=== PATIENT | male | born 1975 | race Caucasian/White ===

== ENCOUNTER → 2023-02-03 | Outpatient (CLI) | payer OTHER ==
--- NOTE | 2023-02-04 10:25 | MR ---
EXAMINATION TYPE: MR cervical spine wo con DATE OF EXAM: 02/03/2023 INDICATION: Patient age:Male; 47 years old; Reason for study: M47.812 SPONDYLOSIS W/O MYELOPATHY. Neck pain, right arm numbness, injury. COMPARISON: None. TECHNIQUE: Multi planar, multi sequence imaging was performed utilizing: T1-weighted, T2-weighted, an d turbo inversion recovery imaging of the cervical spine. IV Contrast: None. FINDINGS: Alignment: The cervical vertebral bodies have preserved heights. Alignment is within normal limits gi janie patient positioning. Bones: Multilevel disc degeneration changes throughout the spine with fixation hardware at C5-C6 and C7. No abnormal bony edema on inversion recovery sequences. Cord: The spinal cord is unremarkable with regards to their signal intensity and morphology. Discs: Postsurgical changes at C5-C6 and C6-C7. There is mild disc desiccation scattered throughout the visualized spine. C2-C3: No significant disc pathology. The spinal canal is patent. No neural foraminal stenosis. C3-C4: No significant disc pathology. The spinal canal is patent. Bilateral facet and uncovertebral joint arthropathy are present with mild bilateral neural foraminal stenosis. C4-C5: A disc osteophyte complex is present with mild spinal canal stenosis. Bilateral facet and unc overtebral joint arthropathy are present with severe right and mild left neural foraminal stenosis. C5-C6: No significant disc pathology. The spinal canal is patent. Bilateral facet and uncovertebral joint arthropathy are present with mild to moderate bilateral neural foraminal stenosis. C6-C7: No significant disc pathology. The spinal canal is patent. Bilateral facet and uncovertebral joint arthropathy are present with mild bilateral neural foraminal stenosis. C7-T1: No significant disc pathology. The spinal canal is patent. Bilateral facet and uncovertebral joint arthropathy are present with mild bilateral neural foraminal stenosis. Other: High T2 signal 15 x 9 mm lesion in the low posterior back midline near midline suggestive of s ebaceous cyst. IMPRESSION: 1. Severe right C4-C5 neural foraminal stenosis. 2. No evidence for significant spinal canal stenosis. 3. Postsurgical changes of the spine with fixation hardware.
== END | disposition home or self-care (01) ==
LOC: RADMRIMAIN 11:11
PROVIDERS: ATTEND Orthopaedic Surgery Orthopaedic Surgery of the Spine
DX: M47.812 Spondylosis without myelopathy or radiculopathy, cervical region (principal); M99.71 Connective tissue and disc stenosis of intervertebral foramina of cervical region
CPT/HCPCS: 72141

== ENCOUNTER 2023-02-19 12:28 | Emergency (ER) | payer OTHER ==
--- NOTE | 2023-02-19 12:59 | ED ---
General Adult HPI - General Chief complaint: Extremity Injury, Lower Stated complaint: [facility] right knee injury Time Seen by Provider: 02/19/23 12:34 Source: patient, RN notes reviewed, old records reviewed Mode of arrival: ambulatory Limitations: no limitations - History of Present Illness Initial comments: Patient is a 47-year-old male presents emergency Department when the right knee pain. Patient was at work when he attempted to ambulate over a log and planted his right leg on the ground to swing his left leg over the log. States his right knee gave out on him. States it feels somewhat unstable since then. Is able to ambulate but does not feel as strong. Denies any sensory deficits. Endorses pain in the knee with flexion. Denies any other injuries. Denies hitting his head, loss of consciousness, being on blood thinners. Denies any hip pain, back pain, abdominal pain, chest pain. No other acute complaints at this time. Presents for further evaluation at this time. - Related Data Home Medications Medication Instructions Recorded Confirmed Esomeprazole Magnesium [NexIUM] 20 mg PO DAILY 02/19/23 02/19/23 Allergies Allergy/AdvReac Type Severity Reaction Status Date / Time morphine Allergy Anaphylaxis Verified 02/19/23 12:36 Penicillins Allergy Anaphylaxis Verified 02/19/23 12:36 Review of Systems ROS Statement: Those systems with pertinent positive or pertinent negative responses have been documented in the HPI. Review of Systems: CONST: Denies fever EYES: Denies blurry vision ENT: Denies nasal congestion C/V: Denies Chest pain RESP: Denies shortness of breath GI: Denies abdominal pain : Denies dysuria SKIN: Denies rash. MSK: Endorses right knee pain NEURO: Denies headache ROS Other: All systems not noted in ROS Statement are negative. Past Medical History Past Medical History: Hypertension History of Any Multi-Drug Resistant Organisms: None Reported Additional Past Surgical History / Comment(s): neck surgery Past Psychological History: No Psychological Hx Reported Smoking Status: Never smoker Past Alcohol Use History: Occasional Past Drug Use History: None Reported General Exam - General Exam Comments Initial Comments: General: Appears in mild distress secondary to right knee pain HEAD: Normal with no signs of head trauma. EYES: EOMI. ENT: Hearing grossly intact. RESPIRATORY: No respiratory distress. C/V: Regular rate and rhythm. ABD: Abdomen is nondistended. EXT: No obvious deformity. Decreased flexion of the right knee secondary to pain. No obvious deformity of the knee. Anterior drawer test negative. No laxity appreciated. No tib-fib tenderness to palpation. Bilateral joint line tenderness to palpation of the right knee. Able to hold the knee in full extension. Patient also has some mild medial malleolar tenderness and anterior ankle tenderness to palpation with normal range of motion. No obvious sensory deficits appreciated. Neurovascularly intact throughout. SKIN: No rashes or lesions observed on exposed skin. NEURO: Alert and oriented. Limitations: no limitations Course Vital Signs 02/19/23 02/19/23 02/19/23 12:31 14:01 14:03 Temperature 98.6 F 98.2 F Pulse Rate 86 82 82 Respiratory 20 14 Rate Blood Pressure 161/115 168/106 172/108 O2 Sat by Pulse 97 97 Oximetry Medical Decision Making - Medical Decision Making Was pt. sent in by a medical professional or institution (, PA, EXPANSION JOINT BUILDER, urgent care, hospital, or senior living...) When possible be specific @ -No Did you speak to anyone other than the patient for history (EMS, parent, family, police, friend...)? What history was obtained from this source @ -No Did you review nursing and triage notes (agree or disagree)? Why? @ -I reviewed and agree with nursing and triage notes Were old charts reviewed (outside hosp., previous admission, EMS record, old EKG, old radiological studies, urgent care reports/EKG's, senior living records)? Report findings @ -No old charts were reviewed Differential Diagnosis (chest pain, altered mental status, abdominal pain women, abdominal pain men, vaginal bleeding, weakness, fever, dyspnea, syncope, headache, dizziness, GI bleed, back pain, seizure, CVA, palpatations, mental health, musculoskeletal)? @ -Knee strain, knee sprain, knee fracture, knee dislocation, ankle injury, strain, ankle sprain, ankle fracture. This list is not all-inclusive EKG interpreted by me (3pts min.). @ -None done X-rays interpreted by me (1pt min.). @ -Knee x-ray, ankle x-ray unremarkable for any obvious traumatic injury. There is some edema around the ankle suggestive of swelling. CT interpreted by me (1pt min.). @ -None done U/S interpreted by me (1pt. min.). @ -None done What testing was considered but not performed or refused? (CT, X-rays, U/S, labs)? Why? @ -None What meds were considered but not given or refused? Why? @ -I did offer the patient Tylenol or Motrin for analgesia which he declines at this time. Did you discuss the management of the patient with other professionals (professionals i.e. , PA, EXPANSION JOINT BUILDER, lab, RT, psych nurse, social media developer, vascular radiologist, teacher, bank compliance officer, social work case manager)? Give summary @ -No Was smoking cessation discussed for >3mins.? @ -No Was critical care preformed (if so, how long)? @ -No Were there social determinants of health that impacted care today? How? (Homelessness, low income, unemployed, alcoholism, drug addiction, transportation, low edu. Level, literacy, decrease access to med. care, nursing home, rehab)? @ -No Was there de-escalation of care discussed even if they declined (Discuss DNR or withdrawal of care, Hospice)? DNR status @ -No What co-morbidities impacted this encounter? (DM, HTN, Smoking, COPD, CAD, Cancer, CVA, ARF, Chemo, Hep., AIDS, mental health diagnosis, sleep apnea, morbid obesity)? @ -None Was patient admitted / discharged? Hospital course, mention meds given and route, prescriptions, significant lab abnormalities, going to OR and other pertinent info. @ -Based on the patient's presentation and physical exam, I'm concerned for possible near ankle injury of the right leg. Exam is relatively unremarkable except for pain on palpation as well as decreased flexion secondary to pain in the knee. We will obtain x-rays of the knee and the ankle. I did offer analgesic medications which the patient refuses. We will provide him with ice. He was in agreement with this plan. Vital signs within acceptable limits. X-rays were unremarkable except for some soft tissue edema. I discussed results with the patient. Discussed he needs orthopedic follow-up which he was in agreement with. He'll see Dr. 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 We'll provide him with contact information. We will also provide him with Eliel bandages. I did offer him a knee immobilizer which she declines at this time. He is still ambulatory. Strict return precautions discussed. Patient was in agreement this plan. I instructed the patient to follow up with their PCP in the next 1-3 days. I provided contact information for follow up with [facility]. I explained that the patient should return to the emergency department if they experience any worsening symptoms. Strict return precautions were discussed with the patient. The patient expressed understanding of these instructions. I answered all questions that the patient had. The patient was discharged home in good condition with their prescriptions and follow up information. Undiagnosed new problem with uncertain prognosis? @ -No Drug Therapy requiring intensive monitoring for toxicity (Heparin, Nitro, Insulin, Cardizem)? @ -No Were any procedures done? @ -No Diagnosis/symptom? @ -Knee sprain, ankle sprain, fall Acute, or Chronic, or Acute on Chronic? @ -Acute Uncomplicated (without systemic symptoms) or Complicated (systemic symptoms)? @ -Uncomplicated Side effects of treatment? @ -none Exacerbation, Progression, or Severe Exacerbation] @ -no Poses a threat to life or bodily function? @ -no Disposition Clinical Impression: Right knee sprain, Right ankle sprain Disposition: HOME SELF-CARE Condition: Good Instructions (If sedation given, give patient instructions): Ankle Sprain (ED), Knee Sprain (ED) Is patient prescribed a controlled substance at d/c from ED?: No Referrals: None,Stated [Primary Care Provider] - 1-2 days Brian Geller DO [Doctor of Osteopathic Medicine] - 1-2 days Time of Disposition: 13:40
--- NOTE | 2023-02-19 13:12 | XR ---
EXAMINATION TYPE: XR knee complete RT DATE OF EXAM: 02/19/2023 1:07 PM INDICATION: Patient age:Male; 47 years old; Reason for study: pain; [facility]. COMPARISON: None. TECHNIQUE: The Right knee(s) was examined in 3 projections. Frontal, crosstable lateral and oblique. FINDINGS: No evidence of any acute osseous pathology, joint space narrowing, soft tissue swelling, or joint effusion is noted. Suprapatellar spurring noted. IMPRESSION: No acute osseous pathology.
--- NOTE | 2023-02-19 13:13 | XR ---
EXAMINATION TYPE: XR ankle complete RT DATE OF EXAM: 02/19/2023 COMPARISON: NONE HISTORY: Pain TECHNIQUE: Frontal, lateral and oblique images of the right ankle are obtained. FINDINGS: There is no acute fracture/dislocation evident. The joint spaces appear within normal fuller its. Mild soft tissue edema of the ankle. IMPRESSION: 1. There is no acute fracture or dislocation seen. 2. Mild soft tissue edema of the ankle.
[2023-02-19 14:03] VITALS: PULSE 82; RESP 14; TEMP 98.2
[2023-02-19 14:04] VITALS: BP 172/108
== END 2023-02-19 14:04 | disposition home or self-care (01) ==
LOC: EC 12:28
DX: S83.91XA Sprain of unspecified site of right knee, initial encounter (principal); S93.401A Sprain of unspecified ligament of right ankle, initial encounter; I10 Essential (primary) hypertension; Z88.0 Allergy status to penicillin; Z88.5 Allergy status to narcotic agent; W19.XXXA Unspecified fall, initial encounter; Y99.0 Civilian activity done for income or pay
CPT/HCPCS: 99283

== ENCOUNTER → 2023-06-08 | Outpatient (CLI) | payer OTHER ==
--- NOTE | 2023-06-08 10:19 | XR ---
EXAMINATION TYPE: XR chest 2V DATE OF EXAM: 06/08/2023 9:56 AM COMPARISON: None TECHNIQUE: XR chest 2V Frontal and lateral views of the chest. CLINICAL INDICATION:Male, 47 years old with history of PRE SURGICAL TESTING; FINDINGS: Lungs/Pleura: There is no evidence of pleural effusion, focal consolidation, or pneumothorax. Pulmonary vascularity: Unremarkable. Heart/mediastinum: Cardiomediastinal silhouette is unremarkable. Musculoskeletal: No acute osseous pathology. IMPRESSION: No acute cardiopulmonary disease/process.
[2023-06-08 10:53] LABS: INR 0.9 (<1.2); Partial Thromboplastin Time 25.8 sec (22.0-30.0); Prothrombin Time 10.1 sec (9.0-12.0)
[2023-06-08 16:59] LABS: Basophils # (A) 0.05 X 10*3/uL (0.00-0.10); Basophils % (A) 0.8 %; Eosinophils # (A) 0.09 X 10*3/uL (0.04-0.35); Eosinophils % (A) 1.5 %; HCT 44.8 % (39.6-50.0); Lymphocytes # (A) 2.11 X 10*3/uL (0.90-5.00); Lymphocytes % (A) 35.1 %; MCH 32.9 pg (27.0-32.0); MCHC 33.5 d/dL (32.0-37.0); MCV 98.2 FL (80.0-97.0); Mean Platelet Volume 9.8 FL (9.5-12.2); Monocytes # (A) 0.48 X 10*3/uL (0.20-1.00); NRBC Per 100 WBC 0 X 10*3/uL (0.00-0.01); Neutrophils # (A) 3.25 X 10*3/uL (1.80-7.70); Neutrophils % (A) 54.1 %; Platelet Count 265 X 10*3/uL (140-440); RBC 4.56 X 10*6/uL (4.40-5.60); RDW 12.8 % (11.5-14.5); WBC 6.01 X 10*3/uL (4.50-10.00)
[2023-06-08 17:11] LABS: ALT 34 U/L (10-49); AST 35 U/L (14-35); Albumin 4.7 d/dL (3.8-4.9); Albumin/Globulin Ratio 2.04 Ratio (1.60-3.17); Alkaline Phosphatase 78 U/L (41-126); Blood Urea Nitrogen 14.9 mg/dL (9.0-27.0); Calcium 9.7 mg/dL (8.7-10.3); Carbon Dioxide 27.6 mmol/L (21.6-31.8); Chloride 103 mmol/L (96-109); Globulin 2.3 d/dL (1.6-3.3); Glucose 89 mg/dL (70-110); Potassium 4.7 mmol/L (3.5-5.5); Sodium 140 mmol/L (135-145); Total Bilirubin 0.3 mg/dL (0.3-1.2)
[2023-06-08 22:25] LABS: Appearance,Urine Clear (Clear); Bilirubin,Urine Negative (Negative); Blood,Urine Negative (Negative); Color,Urine Yellow (Yellow); Ketones,Urine Negative (Negative); Nitrite,Urine Negative (Negative); PH, Urine 6.5; Specific Gravity,Urine 1.017 (1.001-1.030); Urobilinogen,Urine 0.2 E.U./DL
== END | disposition home or self-care (01) ==
LOC: LABPAT 09:41
PROVIDERS: ATTEND Orthopaedic Surgery Orthopaedic Surgery of the Spine
DX: Z01.812 Encounter for preprocedural laboratory examination (principal); M48.02 Spinal stenosis, cervical region; R94.31 Abnormal electrocardiogram [ECG] [EKG]
CPT/HCPCS: 71046; 80053; 81003; 85025; 85610; 85730; 87070; 93005

== ENCOUNTER → 2023-06-14 | Day surgery (SDC) | payer OTHER ==
[2023-06-07 14:48] VITALS: BMI 27.2
[~2023-06-14] MED LIST: ACETAMINOPHEN TAB 500 MG TAB PO SCH; BENZOCAINE/MENTHOL LOZENG 1 EACH LOZENGE MUCOUS MEM PRN; BUPIVACAINE (PF) 0.5% 30 ML VIAL SQ ONE; CYCLOBENZAPRINE 10 MG TAB PO PRN; DEXAMETHASONE SOD PHOSPHATE 10 MG/ML 1 ML VIAL ONE; DEXAMETHASONE SOD PHOSPHATE 4 MG/ML 1 ML VIAL IV ONE; GELATIN SPONGE,ABSORB (LARGE) 1 EACH SPONGE TOPICAL ONE; GLYCOPYRROLATE 0.2 MG/ML 2 ML VIAL ONE; HYDROcodone/APAP 5-325MG 1 EACH TAB PO PRN; HYDROmorphone 1 MG/ML 1 ML SYRINGE IVP PRN; KETAMINE 10 MG/ML 20 ML VIAL ONE; LACTATED RINGERS 1,000 ML IV ONE; LACTATED RINGERS 1,000 ML IV SCH; LIDOCAINE 1% (10MG/ML) FOR IV START INTRADERMA PRN; LIDOCAINE 2% INJ 20 MG/ML (2 ML VIAL) ONE; LIDOCAINE 2%-EPI 1:100,000 20 ML VIAL SQ ONE; MIDAZOLAM 2 MG/2 ML VIAL IVP ONE; MIDAZOLAM 2 MG/2 ML VIAL ONE; NEOSTIGMINE 1 MG/ML 10 ML VIAL ONE; ONDANSETRON 4 MG/2 ML VIAL IVP ONE; ONDANSETRON 4 MG/2 ML VIAL IVP PRN; PROPOFOL 10 MG/ML 20 ML VIAL IV ONE; ROCURONIUM 10 MG/ML (5 ML VIAL) IV ONE; SODIUM CHLORIDE 0.9% 1,000 ML IV SCH; SUCCINYLCHOLINE CHLORIDE 200 MG/10 ML VIAL IV ONE; THROMBIN (BOVINE) 5,000 UNIT VIAL TOPICAL ONE; ceFAZolin 1,000 MG in SODIUM CHLORIDE 0.9% IRRIGATIO 1,000 ML IRRIGATION PRN; droPERidol 5 MG/2 ML VIAL IVP ONE; fentaNYL (PF) 50 MCG/ML 2 ML AMP IV PRN; fentaNYL (PF) 50 MCG/ML 2 ML AMP ONE
[2023-06-14 06:53] LABS: Glucose,Whole Blood 99 mg/dL (70-110)
--- NOTE | 2023-06-14 09:48 | XR ---
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 FINDINGS: A localization device is noted at the anterior C4-5 level. T-shaped orthopedic stabilizer i s noted at the C4-5 level. Changes of ACDF noted at C5-6 and C6-7. IMPRESSION: As above
--- NOTE | 2023-06-14 09:50 | P.OP ---
Date of Procedure: 06/14/23 Preoperative Diagnosis: Herniated nucleus pulposis C4 5, cervical stenosis C4 5, right upper extremity radiculopathy, right upper shoulder new weakness, history of prior anterior cervical decompression and fusion C5 6 7 Postoperative Diagnosis: Same Anesthesia: GETA Pathology: none sent Condition: stable Disposition: PACU Description of Procedure: BRIEF OPERATIVE NOTE Preoperative Diagnosis:Herniated nucleus pulposis C4 5, cervical stenosis C4 5, right upper extremity radiculopathy, right upper shoulder new weakness, history of prior anterior cervical decompression and fusion C5 6 7 Postoperative Diagnosis:Herniated nucleus pulposis C4 5, cervical stenosis C4 5, right upper extremity radiculopathy, right upper shoulder new weakness, history of prior anterior cervical decompression and fusion C5 6 7 Procedure: Anterior cervical decompression with discectomy and fusion C4 5 Placement of stand alone interbody graft C4 5 With anterior cervical plate with screws measuring 3.5 and 4.0 x 12 and 14 mm Harvesting of local autogenous bone graft Surgeon: Dr. Geller Credit Risk Officer: Taras Raymond is present throughout the entire the case persistence during positioning, dissection, exposure, visualization, and all crucial elements of the case as well as closure. Anesthesia: General anesthesia per Dr. Epperson Estimated blood loss: Approximately 50 mL Complications: None apparent Components implanted: Jeremy K2M standalone anterior cervical implant system with screws and local autogenous bone graft and DBX bone putty to supplemental local autogenous bone graft Disposition: To recovery room in good stable condition. OPERATIVE INDICATIONS The patient has had long-standing issues in their neck and upper extremities. In the past he had had significant radiculopathy and was found have severe stenosis at C5 6 C6 7 and underwent intracervical decompression with discectomy and fusion. He did very well with that procedure and had been doing quite nicely for several years. However he has been having increasing symptoms of his right upper extremity over the past several months. His found have disc her niation at the adjacent level above his prior fusion at C4 5. This correlated well with his neck is a tremor symptoms. The patient has been through conservative treatment. I felt that he had some progressive change at C4 5 level and his higher surgical fusion and site was stable. I thought that he could do well with further surgical intervention addressing the adjacent level at C4 5. We discussed various treatment options including surgery, and the patient wishes to proceed with surgery We discussed the risk, patient's alternatives and benefits of surgery including but not limited to, risk of bleeding risk of infection, risk of need for further surgery, risk of decreased, loss of motion, muscle function, malunion nonunion, hardware failure, nerve damage, paralysis, heart attack, and . OPERATIVE SUMMARY After discussing all the risks, patient alternatives and benefits at length, the patient elected to proceed with surgical intervention, signed informed consent, and presented for their procedure. The patient was seen and examined in the preoperative holding area and the surgical site was marked. The patient was given antibiotics and brought to the operating room. The patient was positioned on the operating room table in a supine position being careful to pad any bony prominences and pressure points. The patient was sedated and intubated by anesthesia in standard fashion. Once the airway and C- spine were stabilized the patient's arms were padded and tucked at her side, with her shoulders gently taped. The head was placed in a donut pad with the neck in good neutral alignment and position. We were careful to maintain the patient's cervical spine and good neutral alignment and position throughout. The patient was prepped and draped in a normal standard fashion. An appropriate timeout and keystone protocol performed. We were able to proceed with the surgery. The local wound area was infiltrated with local anesthetic. An incision was made transversely approximately 2-1/2 cm over the appropriate levels above his prior incision at level CIV 5. Dissection was taken down subcutaneously to the level of the platysma which was split in line with its fibers. Dissection was taken with a carotid approach, with the trachea and esophagus medial and the carotid sheath laterally. We dissected down to the anterior surface of the vertebral bodies. There was more scar tissue at the area and more meticulous technique was used for the dissection. Intraoperative x-ray was taken which showed a marker at the appropriate level at C4 5 disc above the prior plate. With the appropriate level positively confirmed, we were able to proceed with discectomy at the appropriate levels. All of the operative levels were exposed appropriately. The patient had all their twitches back, and there was no evidence of recurrent laryngeal issue. The wound was copiously irrigated and suctioned dry as had been done periodically throughout the case. At the appropriate level/levels, I established an annulotomy with an 11 blade scalpel. A discectomy was performed with a combination of pituitary rongeurs, curettes, a high-speed bur, and Kerrison rongeurs. Large anterior cervical osteophytes were removed. The posterior longitudinal ligament was taken down as were any posterior osteophytes. There was evidence of extruded disc which was removed as well. This gave good central and bilateral foraminal decompression. There is no evidence of any dural tear or leak. The endplates were prepared with a high-speed bur. With the endplates in good parallel position, I was able to size for the appropriate size interbody graft. The wound was irrigated and suctioned dry the graft was prepared. I used a standalone device which was filled with local autogenous bone graft along with DBX bone putty to supplemental autogenous bone graft. It was malleted in position and guidance per used to establish all holes and screws. Initial imaging showed some [place] alignment of the cephalad screw and I removed the screws and the interbody graft. There had been some disruption at the interbody graft and I chose to use a new 8 mm interbody standalone device. I malleted in position with anterior surface flush with the anterior surface of the bodies. I'm a new all starting holes. I was able place screws with a standard screw cephalad and a rescue screw caudad and get excellent alignment position and bony purchase. The screws were seated appropriately, tripped was checked and found to be stable. It had good alignment and position with the anterior surface flush with the anterior surface of the vertebral bodies at C4 5. The plate at C5 and 6 was checked and found to have good stability without any evidence for loosening The construct was checked and found to be stable. Intraoperative x-ray was taken which showed good alignment and position of the implants at the appropriate levels. There was no evidence of any dural tear or leak. Good hemostasis was maintained. The wound was copiously irrigated and suctioned dry as had been done periodically throughout the case. The platysma was closed with absorbable suture. The subcutaneous tissue was closed. The subcuticular tissue was closed with absorbable suture. The wound was cleaned and dried and dressed appropriately. A soft cervical collar was placed appropriately. The patient was woken up by anesthesia, extubated, transferred back gently to their hospital bed and brought to the recovery room in good stable condition. The patient will be admitted to the [facility] for appropriate postoperative care, medical management and monitoring. We will continue to follow them closely about the postoperative course.
--- NOTE | 2023-06-14 09:51 | XR ---
EXAMINATION TYPE: XR cervical spine 1V DATE OF EXAM: 06/14/2023 COMPARISON: NONE HISTORY: Needle placement TECHNIQUE: Crosstable lateral view of the cervical spine FINDINGS: Localizer is noted at the anterior C4-5 level. Changes of ACDF C5-6 and C6-7. IMPRESSION: As above
--- NOTE | 2023-06-14 09:53 | XR ---
EXAMINATION TYPE: XR cervical spine 1V DATE OF EXAM: 06/14/2023 COMPARISON: NONE HISTORY: POST HARDWARE PLACEMENT TECHNIQUE: Crosstable lateral cervical spine FINDINGS: The shaped orthopedic stabilizer noted at the C4-5 level. Separate alignment is anatomic. A nterior fixation plate and intervertebral body spacers noted at C5-6 and C6-7. IMPRESSION: As above
[2023-06-14 10:06] VITALS: TEMP 97.2
[2023-06-14 10:57] VITALS: RESP 14
[2023-06-14 11:07] VITALS: BP 128/84; PULSE 91
== END | disposition home or self-care (01) ==
LOC: OR 06:27
PROVIDERS: ATTEND Orthopaedic Surgery Orthopaedic Surgery of the Spine
DX: M50.121 Cervical disc disorder at C4-C5 level with radiculopathy (principal); M48.02 Spinal stenosis, cervical region; I10 Essential (primary) hypertension; K21.9 Gastro-esophageal reflux disease without esophagitis; Z88.0 Allergy status to penicillin; Z82.49 Family history of ischemic heart disease and other diseases of the circulatory system; Z98.890 Other specified postprocedural states; Z79.899 Other long term (current) drug therapy
CPT/HCPCS: 86900; 86901; 86850; 72020; 22551; 22853; 20930; C1713 ×2; J2250; J0330; J1100; J2710; J0690 ×2; J2405; J3010; J2704; J1790; J2001; J0665

== ENCOUNTER → 2024-06-20 | Outpatient (CLI) | payer BC, OTHER ==
--- NOTE | 2024-07-22 13:58 | CONS ---
CONSULTATION 48-year-old gentleman who has been evaluated in [facility] for possible obstructive sleep apnea and excessive daytime sleepiness and tiredness. HISTORY OF PRESENT ILLNESS: Sleep-wake evaluation. The patient's usual sleep schedule on weekdays from 10 p.m. to 7 a.m. and on weekends from around 10 p.m. to 8 a.m. No problems with falling asleep, no TV in bedroom. The patient sleeps in different positions with very loud snoring. No history of hypnagogic hallucinations, sleep paralysis, or cataplexy. The patient feels tiredness and sleepiness during the day, has problems with memory, irritability. Cochran Sleepiness Scale is 8. The patient may take nap in the evening. PAST MEDICAL HISTORY: Positive for hypertension, acid reflux. PAST SURGICAL HISTORY: Spinal surgery x2, hernia repair. MEDICATION: Nexium. SOCIAL HISTORY: Negative for smoking. Alcohol consumption daily. FAMILY HISTORY: Hypertension, heart problems, hyperlipidemia, snoring, cancer. REVIEW OF SYSTEMS: Loud snoring, tiredness, and sleepiness during the day. No fevers. No double vision. No recent chest pain. No shortness of breath. No abdominal pain. No bleeding episodes. No blood in the urine. No seizure episodes. PHYSICAL EXAMINATION: GENERAL: 48-year-old gentleman without distress. VITAL SIGNS: BP 157/104, HR 64, RR 16, height 6 feet 2 inches, weight 217.4 pounds, BMI 28.6, temperature 98.5, oxygen saturation at room air 95%. HEENT: PERRLA, EOMI, evaluation of oropharynx showed short distance between soft palate and posterior pharyngeal wall. NECK: 16-3/4 inches in circumference. Supple, no JVD. Thyroid is not palpable. LUNGS: Clear to percussion and to auscultation. Good air exchange. No wheezing or rhonchi. HEART: S1, S2 regular. No murmurs, gallops, or rubs. ABDOMEN: Soft and nontender. Bowel sounds are present. No organomegaly appreciated. EXTREMITIES: No clubbing or cyanosis. PATIENT CARE SECRETARY: Awake, alert, and oriented X3. Cranial nerves 2 to 7 intact. There is no fasciculation or atrophy noted. No focal deficits observed. IMPRESSION: 1. Loud snoring, small oropharyngeal air space, feeling tiredness and sleepiness during the day. Obstructive sleep apnea-hypopnea syndrome. 2. Hypertension. 3. Acid reflux. 4. Status post spinal surgery x2. 5. Status post hernia repair. PLAN: 1. Home sleep apnea test for evaluation of the patient's breathing during sleep. 2. Following plan after reading sleep study. 3. Sleep hygiene with time in bed for at least 8 hours. 4. Precautions related to driving. No driving if feeling any sleepiness. Thank you very much for referring this patient for consultation. MMODL / IJN: [id number] /
== END ==
LOC: 3 N SLEEP 14:00
PROVIDERS: ATTEND Internal Medicine
CPT/HCPCS: 99211

== ENCOUNTER → 2024-08-28 | Outpatient (CLI) | payer BC ==
--- NOTE | 2024-08-29 13:34 | P.PCN ---
Description of Procedure: CLINICAL: A home sleep apnea test has been done for confirmation of possible obstructive sleep apnea-hypopnea syndrome. DESCRIPTION OF PROCEDURE: RESULTS: Recording time was 6 hours 53 minutes. Evaluation time was 6 hours 41 minutes. Evaluation time is sufficient for making conclusion about results of the test. Raw data of sleep recording has been reviewed and is adequate. Respiratory channel showed 2 apneas and 29 hypopneas. Apnea-hypopnea index was 4.6 per hour. Pulse rate in the range between minimum 57, maximum 94, average 67 by computer calculation. Lowest desaturation was 89%. IMPRESSION: 1. Very minimal abnormalities of respiration, in normal range by today's criteria, although home sleep apnea test may underestimate severity of respiratory abnormalities during sleep. No significant oxygen desaturation. Please see other impressions from consultation. PLAN: 1. I will see patient for follow-up visit to explain results of the test and recommendations. 2. Sleep hygiene with regular time in bed for at least 8 hours. 3. No driving if feeling any sleepiness. Thank you very much for allowing me to participate in the management of your patient. Sincerely, Jonathan Beaver MD, PhD, FAASM Diplomat of [place] [employer] Sleep Medicine Board of [place] [employer] Insurance Underwriting Assistant of [facility] [place] cc: Zay Lawrence MD
== END ==
LOC: 3 N SLEEP 16:29
PROVIDERS: ATTEND Internal Medicine